=== PATIENT | male | born 1980 | race Caucasian/White ===

== ENCOUNTER → 2018-12-07 17:47 | Outpatient (CLI) | payer BC, SELFPAY | PROVIDERS: PCP Family Medicine; Visit Provider Family Medicine | DX: G47.33 Obstructive sleep apnea (adult) (pediatric) (principal) | CPT/HCPCS: G0399 ==

== ENCOUNTER → 2019-08-24 08:03 | Outpatient (CLI) | payer BC, SELFPAY ==
--- NOTE | 2019-08-24 08:05 | XR_ITS ---
PROCEDURE: XR HAND RT MIN 3V CLINICAL INDICATION: rt 5th MC FX COMPARISON: No exams were available for comparison FINDINGS: There is a comminuted fracture involving the proximal aspect of the proximal phalanx of the 5th digit with dorsal angulation of the distal fracture fragment. The joint spaces are well-preserved. No significant degenerative/arthritic changes. No erosive changes evident. Other findings:None. IMPRESSION: Comminuted fracture proximal phalanx 5th digit Dictated by: Gareth Melgoza MD 08/24/2019 15:58 Electronically signed by Gareth Melgoza MD in [place] 08/24/2019 15:58
[2019-08-24 17:00] LABS: Coronavirus 19 IgG Antibody Negative (Negative); Coronavirus 19 IgM Antibody Negative (Negative)
== END ==
PROVIDERS: PCP Family Medicine; Visit Provider Orthopaedic Surgery
DX: S62.646D Nondisplaced fracture of proximal phalanx of right little finger, subsequent encounter for fracture with routine healing (principal)
CPT/HCPCS: 36415; 73130; 86328

== ENCOUNTER 2019-08-25 07:30 | Day surgery (SDC) | payer BC, SELFPAY ==
[2019-08-24 11:25] VITALS: BMI 29.9
[2019-08-25] VITALS (14 sets, daily range): BP systolic 109–145; BP diastolic 62–97; PULSE 65–102; RESP 12–18; TEMP 36.4–36.7; O2SAT 93–97
--- NOTE | 2019-08-25 08:41 | P.PN_ITS ---
[facility] Anesthesia Checklist - Patient Identification Patient Identification: Arm Band, Verbal (Name & ) - Structural Data Admitted From: Home Planned Operative Procedure/s: right finger fx Consent for Planned Operative Procedure(s) Verified: Yes Verified Documents: History and Physical - NPO Status Verified Time NPO: 00:00 - Chart Verification Results Verified: CBC, BMP - Additional verifications Patient : No Anesthesia Reactions: No Hx Blood Transfusions: No Blood Transfusion Reaction: No Cephalosporin Allergy: No Previous Colonoscopy: Yes - Cardiovascular Assessment Heart Sounds: S1 & S2 Pulse Strength: Baseline Pulse Rhythm: Regular Peripheral Edema: No - Airway Assessment C-Spine Mobility Assessed: Yes TMJ Mobility Assessed: Yes Dentition: Good Dentition - Neurological Assessment Level of Consciousness: Awake, Alert, Appropriate Hx Seizures: No Numbness or tingling in extremities: No - Anesthesia Plan Anesthesia Risk discussed: Yes Anesthesia Plan: Verified ASA Class: I Anesthesia Type: General w/block [facility] History I have reviewed the patient's past medical history: Yes Medical History: Denies:: Cancer, Diabetes Mellitus Type 1, Diabetes Mellitus Type 2, Internal Pacemaker, MRSA, Seizures *Have you ever received a pneumonia vaccine?: No *Have you received a flu vaccine this season?: Yes Anesthesia experience/problems:: none Other Surgeries: Yes: Other. No: Pacemaker Amputation: No Fractures: Yes - *Social History Last grade of school completed: Advanced degree Smoking Status: Never smoker Alcohol Intake: never Alcohol Intake Frequency:: a few times a week Substance Use Type: other *Occupational Status:: employed Housing: house Household Members: spouse *Travel in the last 8 weeks: None Family Hx:: No significant family history
--- NOTE | 2019-08-25 11:41 | XR_ITS ---
PROCEDURE: XR HAND RT 2V CLINICAL INDICATION: CLOSED REDUCTION PINNING COMPARISON: No exams were available for comparison FINDINGS: Fluoroscopy time: 3 minutes and 4 seconds Two crossing pins are placed stabilizing the fracture at the base of the proximal phalanx of the 5th digit with good alignment. IMPRESSION: Good alignment status post closed reduction proximal phalanx fracture 5th digit Dictated by: Gareth Melgoza MD 08/25/2019 15:35 Electronically signed by Gareth Melgoza MD in [place] 08/25/2019 15:35
--- NOTE | 2019-08-25 11:53 | P.PN_ITS ---
[facility] Anesthesia Record Part I Intake, IV Amount: 1,500 Estimated blood loss (mL): 0 Urine output (mL): 0 Blood Pressure: 139/74 SaO2: 93 Pulse Rate: 102 Respiratory Rate: 12 Temperature: 97.5 F Patient is:: Awake, Stable Stable to PACU at:: 11:50
--- NOTE | 2019-08-25 13:29 | HMH.ANESII ---
[facility] Anesthesia Record Part II Discharge Time: 12:20 Destination: Surgical Day Care (OP Surgery) PACU nurse assessment reviewed?: Yes Patient Condition:: Good Anesthesia Complications:: None Swallowing reflex intact?: Yes Cyanosis?: No Blood Pressure: 113/68 Pulse Rate: 90 Temperature: 97.8 F Mental Status: Alert & Oriented Pain level:: 4 Nausea and/or vomitting:: None Intake, IV Amount: 25
--- NOTE | 2019-08-25 22:27 | HMH.OPNOTE ---
Date of procedure: 08/25/19 Pre-op Diagnosis:: R small finger proximal phalanx fracture Post-op Diagnosis:: R small finger proximal phalanx fracture Procedure performed:: closed reduction percutaneous pinning (CRPP) R small finger proximal phalanx fracture Surgeon:: Althea Russell MD [employer] Internship(s):: Jorge Tariq EQUIPMENT ENGINEER:: Eddie Plazaty Anesthesia: GETA, regional Estimated blood loss (mL): 2 Clinical Note:: 39yo RHD M who sustained an injury to the R hand on 08/17/19; he first sought orthopaedic evaluation with myself on 08/24/19. The injury occurred while he was spending the vacation out of [place] bo[place]. He was loading his boat up to leave and smashed his right hand in some of the equipment used to haul the boat. He sustained a superficial laceration over the dorsum of the small finger at the fracture site, no exposed bone reported. He was evaluated at a local urgent care center, where the finger was anthony taped and oral antibiotics were given. He reports no baseline medical issues and takes no daily prescription medications. He has had hypertension and hyperlipidemia in the past that required medication temporarily, but they have been stopped. 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 The right hand is his weapon hand. He has no known drug allergies. No numbness or tingling in the R hand, no open wounds. He sustained a minimally displaced but dorsally angulated small finger proximal phalanx fracture. I discussed the instability of this fracture with the patient and recommended surgical intervention . I discussed the risk of surgery with the patient, including but not limited to bleeding, infection, nonunion/malunion, postoperative stiffness/pain, need for further surgical procedures in the future, need for postoperative Occupational Therapy, postoperative numbness in the finger, and risks of anesthesia. The patient vocalized understanding and provided informed consent for the procedure. Operative findings:: comminuted transverse fracture at base of R small finger proximal phalanx implants: 0.035 k-wires x2 Operative note:: The patient was identified in pre-operative holding and the right hand marked by myself. Consent was reviewed with the patient and all questions answered. The patient requested a nerve block, so after consultation with anesthesia, a supraclavicular nerve block was administered by the EQUIPMENT ENGINEER in pre-operative holding. The patient was then taken to the OR and placed supine on the operative table with the right arm on a hand table. 1 gram of cefazolin was infused intravenously and general anesthesia was induced with an LMA. SCDs were placed on bilateral lower extremities and the right upper extremity was prepped and draped in the usual sterile fashion. Timeout was performed, identifying the correct patient, correct procedure, and correct site. C-arm was brought in to image the right hand. The small finger proximal phalanx fracture was visualized: a comminuted transverse fracture of the base, with an extended/dorsally angulated, apex volar deformity of the distal fragment. The fracture was reduced in a closed fashion using manual pressure. Once acceptable alignment was achieved, it was stabilized with 2 0.035-in k-wires in a crossed fashion. 0.045-in k-wires were attempted first but the small finger proximal phalanx medullary canal was not large enough to accommodate both wires; 0.035-in wires were used instead. The wires started at the radial and ulanr bases of the bone and advanced in an antegrade fashion, crossing both pins so that they crossed distal to the fracture site. Once acceptable reduction/fixation was achieved and seen on fluoro, the pins were trimmed and pin caps placed. Sterile dressings were placed: Xeroform, 4x4s, webril were applied and a plaster ulnar gutter splint applied. The tourniquet was not inflated during this case and EBL was <2cc. The patient tolerated this procedure well without an
--- NOTE | 2019-08-27 09:28 | SUR.OPER ---
2-0.035 K-Wires used 2-0.045 K-Wires explanted
== END 2019-08-25 14:05 | disposition home or self-care (01) ==
PROVIDERS: PCP Family Medicine; Visit Provider Orthopaedic Surgery
PROC: (CPT 26727; principal; 2019-08-25 09:00)
DX: S62.616A Displaced fracture of proximal phalanx of right little finger, initial encounter for closed fracture (principal); W23.0XXA Caught, crushed, jammed, or pinched between moving objects, initial encounter; Y93.19 Activity, other involving water and watercraft
CPT/HCPCS: 26727; 73120; 76000; 96374; J2405

== ENCOUNTER → 2019-08-31 13:43 | Outpatient (CLI) | payer BC, SELFPAY ==
--- NOTE | 2019-08-31 13:45 | XR_ITS ---
PROCEDURE: XR HAND RT MIN 3V CLINICAL INDICATION: s/p rt 5th MC FX Follow-up fracture COMPARISON: XR HAND RT MIN 3V from 08/24/2019 FINDINGS: Status post pinning of the proximal phalanx fracture of the 5th digit with [address] with good alignment. IMPRESSION: Good alignment status post closed reduction proximal 5th phalanx fracture Dictated by: Gareth Melgoza MD 08/31/2019 14:25 Electronically signed by Gareth Melgoza MD in [place] 08/31/2019 14:25
== END ==
PROVIDERS: PCP Family Medicine; Visit Provider Orthopaedic Surgery
DX: S62.646D Nondisplaced fracture of proximal phalanx of right little finger, subsequent encounter for fracture with routine healing (principal)
CPT/HCPCS: 73130

== ENCOUNTER 2019-09-01 15:31 | Outpatient (RCR) | payer BC, SELFPAY | END 2019-09-01 15:35 | disposition home or self-care (01) | LOC: OT 15:31 | PROVIDERS: PCP Family Medicine; Visit Provider Orthopaedic Surgery | DX: S62.646D Nondisplaced fracture of proximal phalanx of right little finger, subsequent encounter for fracture with routine healing (principal) | CPT/HCPCS: 97760 ==

== ENCOUNTER → 2019-09-10 09:53 | Outpatient (CLI) | payer BC, SELFPAY ==
--- NOTE | 2019-09-10 09:56 | XR_ITS ---
PROCEDURE: XR HAND RT MIN 3V CLINICAL INDICATION: Rt 5th MC FX FU Follow-up surgery COMPARISON: XR HAND RT MIN 3V from 08/24/2019 XR HAND RT MIN 3V from 08/31/2019 FINDINGS: No change in the 2 pins within the proximal phalanx the 5th digit with good alignment of the bony fragments. The fracture lines are still visible IMPRESSION: No change good alignment status post pinning proximal phalanx fracture of the 5th digit Dictated by: Gareth Melgoza MD 09/10/2019 16:05 Electronically signed by Gareth Melgoza MD in [place] 09/10/2019 16:05
== END ==
PROVIDERS: PCP Family Medicine; Visit Provider Orthopaedic Surgery
DX: S62.616D Displaced fracture of proximal phalanx of right little finger, subsequent encounter for fracture with routine healing (principal)
CPT/HCPCS: 73130

== ENCOUNTER → 2019-09-21 09:13 | Outpatient (CLI) | payer BC, SELFPAY ==
--- NOTE | 2019-09-21 09:16 | XR_ITS ---
PROCEDURE: XR HAND RT MIN 3V CLINICAL INDICATION: 5th MC FX Follow-up fracture COMPARISON: XR HAND RT MIN 3V from 08/24/2019 XR HAND RT MIN 3V from 08/31/2019 XR HAND RT MIN 3V from 09/10/2019 FINDINGS: There has been pinning of the proximal phalanx fracture of the 5th digit with good alignment. Two pins remain in place. IMPRESSION: No change good alignment status post pinning proximal phalanx fracture of the 5th digit Dictated by: Gareth Melgoza MD 09/21/2019 10:30 Electronically signed by Gareth Melgoza MD in [place] 09/21/2019 10:30
== END ==
PROVIDERS: PCP Family Medicine; Visit Provider Orthopaedic Surgery
DX: S62.619A Displaced fracture of proximal phalanx of unspecified finger, initial encounter for closed fracture (principal)
CPT/HCPCS: 73130

== ENCOUNTER → 2019-10-19 09:32 | Outpatient (CLI) | payer BC, SELFPAY ==
--- NOTE | 2019-10-19 09:35 | XR_ITS ---
PROCEDURE: XR HAND RT MIN 3V CLINICAL INDICATION: 5th MC FX Fu Fracture COMPARISON: CR XR HAND RT MIN 3V from 08/24/2019 CR XR HAND RT MIN 3V from 08/31/2019 CR XR HAND RT MIN 3V from 09/10/2019 CR XR HAND RT MIN 3V from 09/21/2019 FINDINGS: There is a nondisplaced healing fracture involving the mid and proximal aspect of the proximal phalanx of the 5th digit. Pins have been removed and callus formation is developing. Fracture line is still visible The joint spaces are well-preserved. No significant degenerative/arthritic changes. No erosive changes evident. Other findings:None. IMPRESSION: Healing fracture proximal phalanx 5th digit Dictated by: Gareth Melgoza MD 10/19/2019 10:29 Gareth Melgoza MD in [place] 10/19/2019 10:29
== END ==
PROVIDERS: PCP Family Medicine; Visit Provider Orthopaedic Surgery
DX: S62.619A Displaced fracture of proximal phalanx of unspecified finger, initial encounter for closed fracture (principal)
CPT/HCPCS: 73130

== ENCOUNTER → 2019-11-16 09:34 | Outpatient (CLI) | payer BC, SELFPAY ==
--- NOTE | 2019-11-16 09:37 | XR_ITS ---
PROCEDURE: XR HAND RT MIN 3V CLINICAL INDICATION: RT 5th MC FX follow up Follow-up fracture COMPARISON: CR XR HAND RT MIN 3V from 08/31/2019 CR XR HAND RT MIN 3V from 09/10/2019 CR XR HAND RT MIN 3V from 09/21/2019 CR XR HAND RT MIN 3V from 10/19/2019 FINDINGS: Healing comminuted fracture involves the proximal phalanx of the 5th digit with good alignment. The fracture line is less distinct. No significant displacement. IMPRESSION: Healing fracture proximal phalanx 5th digit Dictated by: Gareth Melgoza MD 11/16/2019 17:38 Gareth Melgoza MD in [place] 11/16/2019 17:38
== END ==
PROVIDERS: PCP Family Medicine; Visit Provider Orthopaedic Surgery
DX: S62.616A Displaced fracture of proximal phalanx of right little finger, initial encounter for closed fracture (principal)
CPT/HCPCS: 73130

== ENCOUNTER 2023-05-14 11:38 | Outpatient (POV) | payer BC, SELFPAY | END 2023-05-14 23:59 | disposition home or self-care (01) | LOC: SC 11:38 | PROVIDERS: PCP Internal Medicine Adolescent Medicine; Visit Provider Dermatology | DX: Z00.00 Encounter for general adult medical examination without abnormal findings (principal) ==